=== PATIENT | male | born 1975 | race African-American/Black ===

== ENCOUNTER 2021-05-03 20:26 | Emergency (ER) | payer MEDICAID ==
[~2021-05-03] VITALS: Ht 175.3 cm; Wt 72.6 kg
[2021-05-03 21:10] VITALS: BP 122/72
--- NOTE | 2021-05-03 21:10 | NUR ---
TO TENT AMBULATORY
--- NOTE | 2021-05-03 22:00 | NUR ---
SEEN AND EXAMINED BY JUAN JOSÉ
[2021-05-03 22:48] VITALS: BP 119/79
--- NOTE | 2021-05-03 22:48 | NUR ---
Patient discharged with v/s stable. Written and verbal after care instructions given and explained. Patient verbalized understanding. Ambulatory with steady gait. All questions addressed prior to discharge. Advised to follow up with PMD.
== END 2021-05-03 22:48 | disposition home or self-care (01) ==
LOC: MED 20:26
DX: U07.1 COVID-19 (principal)
CPT/HCPCS: 99281